=== PATIENT | female | born 1950 | race Caucasian/White ===

== ENCOUNTER → 2019-05-11 | Outpatient (CLI) | payer MEDICARE, OTHER ==
[~2019-05-11] MED LIST: ALLEGRA ALLERG180 MG PO; ALPR.25 PO; Aspir 8181 MG PO; BISA5EC PO; BUPR150ER PO; BUTASPCAF PO; CYCL10 PO; DOCU100 PO; FEXPSEER PO; HYDR1TAB94 PO; Hair, Skin & N1 EACH PO; Hydrocodone-Ap1 EA23 PO; MELO7.5 PO; PROCTOSOL-HC30 GM PR; PROP60 PO; Percocet 5-3251 EACH PO; Senna8.6 MG PO; VITAMIN B122500 MCG PO; VITAMIN D31 ML PO; Veetids 500500 MG PO; ZEBUTAL 50-3251 EACH PO; Zofran Odt8 MG SL
[2019-05-14 05:08] LABS: COTININE Negative ng/mL (Cutoff=300)
== END | disposition home or self-care (01) ==
LOC: LAB 11:19 → LAB SHORT 11:19
PROVIDERS: Orthopaedic Surgery
DX: M17.12 Unilateral primary osteoarthritis, left knee (principal)

== ENCOUNTER 2019-06-21 08:32 | Day surgery (SDC) | payer MEDICARE, OTHER ==
[~2019-06-21] VITALS: Ht 152.4 cm; Wt 71.0 kg
[~2019-06-21 08:32] MED LIST changes: -Aspir 8181 MG PO; -Percocet 5-3251 EACH PO
--- NOTE | 2019-06-21 09:05 | NUR ---
ADMISSION STARTED TO [facility]. Ambulatory in Day Surgery History, Chart, Medications and Allergies reviewed before start of procedure.Lungs clear T/O to Auscultation. Patient confirms NPO status and agrees with scheduled surgery.
--- NOTE | 2019-06-21 17:37 | NUR ---
SHIFT SUMMARY PT HAS STRUGGLED WITH PAIN MANAGEMENT SINCE SPINAL WORE OFF. DID HAVE ONE EPISODE OF EMESIS. NO VOID AT THIS TIME BUT PT WILL ATTEMPT AFTER DINNER.
--- NOTE | 2019-06-21 18:32 | NUR ---
PT VOMITTED. CLEANED UP AND RESTING IN CHAIR CURRENTLY. STATES THE NAUSEA IS COMING IN WAVES AND CURRENTLY IS NOT FEELING ANY NAUSEA.
--- NOTE | 2019-06-21 19:22 | NUR ---
SHIFT SUMMARY CARE ASSUMED OF PT AT APPROXIMATELY 1800. PT ALERT, ORIENTED AND PLEASANT. PT COMPLAINING OF NAUSEA. PAIN MANAGED. REPORT GIVEN TO LUCY BARTHOLOMEW.
--- NOTE | 2019-06-21 21:35 | NUR ---
PT REPORTS VOIDING RECENTLY AND FEELS SHE VOIDED WELL.
[2019-06-22 04:26] LABS: BASOPHILS ABSOLUTE AUTO 0.02 K/mm3 (0.00-0.23); BASOPHILS PERCENT AUTO 0 % (0-2); EOSINOPHILS PERCENT AUTO 0 % (0-6); Hematocrit 35.2 % (33.0-51.0); Hemoglobin 11.2 g/dL (11.5-16.0); IMMATURE GRAN ABSOLUTE AUTO 0.08 K/mm3 (0.00-0.10); IMMATURE GRAN PERCENT AUTO 1 % (0-1); LYMPHOCYTES ABSOLUTE AUTO 2.72 K/mm3 (0.84-5.20); LYMPHOCYTES PERCENT AUTO 16 % (21-46); MONOCYTES ABSOLUTE AUTO 0.93 K/mm3 (0.16-1.47); MONOCYTES PERCENT AUTO 5 % (4-13); Mean Corpuscular HGB 27.3 pg (26.0-34.0); Mean Corpuscular HGB Conc 31.8 g/dL (31.5-36.5); Mean Platelet Volume 8.9 fL (9.1-12.4); NEUTROPHILS ABSOLUTE AUTO 13.42 K/mm3 (1.96-9.15); NEUTROPHILS PERCENT AUTO 78 % (41-73); Platelet Count 302 K/mm3 (150-400); RDW Standard Deviation 43.8 fL (35.1-46.3); Red Blood Cell Count 4.11 M/mm3 (3.80-5.20); White Blood Cell Count 17.17 K/mm3 (4.00-11.30)
[2019-06-22 04:27] LABS: Mean Corpuscular Volume 86 fL (80-100)
[2019-06-22 04:45] LABS: Anion Gap 5 mmol/L (6-16); Blood Urea Nitrogen 12 mg/dL (8-24); Bun/Creatinine Ratio 23.8 (12.0-20.0); CO2, Blood 27 mmol/L (21-32); Calcium, Blood 8.7 mg/dL (8.5-10.1); Chloride, Blood 103 mmol/L (98-108); Glomerular Filtration Rate >60 (60-); Glucose, Blood 127 mg/dL (70-99); Sodium, Blood 135 mmol/L (136-145)
--- NOTE | 2019-06-22 07:38 | NUR ---
SHIFT SUMMARY PT BEEN ASSISTED WITH ADL'S PRN. PT BEEN MED FOR PAIN PRN. PT VOIDING. PT UP TO CHAIR THIS AM.
[2019-06-22] MEDS ORDERED: Aspir 8181 MG PO ×2 (10:24→10:34)
[2019-06-22] MEDS ORDERED: Percocet 5-3251 EACH PO (10:24)
--- NOTE | 2019-06-22 11:01 | NUR ---
DISCHARGE SUMMARY PT A&OX4, VSS, LEFT FLOOR VIA WC WITH VICE PRESIDENT [employer] INSIGHTS TO GO HOME WITH , WITH ALL PERSONAL POSSESSIONS INCLUDING DISCHARGE PACKET, 1 NARC SCRIPT, 1 ASA SCRIPT, 2 AQUACEL DRESSINGS, POLAR ANGIE. DC INSTRUCTIONS PROVIDED. PT REP UNDERSTANDING THOSE INSTRUCTIONS. IV DC'D.
== END 2019-06-22 11:36 | disposition home or self-care (01) ==
LOC: ORSCMMR 08:32 → ORD 10:15 → SURS 12:59 → ORSCMMR 06-22 11:36 → SURS 06-22 11:36
PROVIDERS: Orthopaedic Surgery
PROC: 0SRD06A Replacement of Left Knee Joint with Oxidized Zirconium on Polyethylene Synthetic Substitute, Uncemented, Open Approach (ICD-10-PCS; principal; 2019-06-21 10:15)
DX: M17.12 Unilateral primary osteoarthritis, left knee (principal); J44.9 Chronic obstructive pulmonary disease, unspecified; Z87.891 Personal history of nicotine dependence
CPT/HCPCS: 36415; 73560-LT; 80048; 85025; 86850; 86900; 86901; 88300; 97110; 97116; 97162; 97530; C1776; J0171; J0690; J0735; J1100; J1170; J1885; J2250; J2370; J2405; J2704; J2765; J2795; J3010; J7120

== ENCOUNTER 2019-08-23 08:08 | Day surgery (SDC) | payer MEDICARE, OTHER ==
[~2019-08-23] VITALS: Ht 154.9 cm; Wt 73.2 kg
[~2019-08-23 08:08] MED LIST changes: +Aspir 8181 MG PO; +GABA300T24 PO; +Percocet 5-3251 EACH PO
--- NOTE | 2019-08-23 09:12 | NUR ---
History, Chart, Medications and Allergies reviewed before start of procedure. Patient confirms NPO status and agrees with scheduled surgery. Lungs clear T/O to Auscultation.
--- NOTE | 2019-08-23 17:25 | NUR ---
PT RECENTLY WORKED WITH THERAPY.
--- NOTE | 2019-08-23 17:51 | NUR ---
PT REPORTING PAIN AT BACK SIDE OF KNEE/CALF AREA. PT REPORTS "IT ACTUALLY DOESN'T HURT IF I PRESS RIGHT HERE JUST ABOVE THAT". PT REPORTS IT HURTING WHEN AT REST BEHIND KNEE. PT REPORTS BACK OF KNEE DOES NOT HURT IF HOLDING LEG UP AND FLEXING TOE UPWARDS. PLACED NEW [place]CRATES WRAP. DISCUSSED WITH TRANSPLANT WORKER AND DR PAULETTE ADAMSON'S PA.
--- NOTE | 2019-08-23 17:56 | NUR ---
NO NEW ORDERS.
--- NOTE | 2019-08-23 18:00 | NUR ---
SHIFT SUMMARY PT EATING AND DRINKING. PT BEEN ASSISTED WITH ADL'S PRN. PT BEEN UP TO CHAIR AND VOIDED TODAY SINCE SURGERY. PT REPORTED PAIN TO BACK OF CALF, SEE OTHER NOTE. PT WORKED WITH THERAPY TODAY.
--- NOTE | 2019-08-24 04:14 | NUR ---
SHIFT SUMMARY PATIENT SLEPT WELL AFTER ONE DOSE OF DILAUDID PRIOR TO MIDNIGHT. SHE HAS BEEN UP IN THE ROOM WITH ASSISTANCE AND WALING IN THE HALLWAYS WITH GAIT BELT AND FWW. SHE STATES THAT SHE IS SURPRISED THAT SHE IS NOT ABLE TO BEND HER KNEE HER LT SIDED SURGERY. PATIENT BECAME NAUSEATED AND VOMITED AFTER EATING CHOCOLATE PUDDING. ZOFRAN IV GIVEN.
[2019-08-24 04:48] LABS: BASOPHILS ABSOLUTE AUTO 0.06 K/mm3 (0.00-0.23); BASOPHILS PERCENT AUTO 0 % (0-2); EOSINOPHILS ABSOLUTE AUTO 0.07 K/mm3 (0.00-0.68); EOSINOPHILS PERCENT AUTO 1 % (0-6); Hematocrit 34.7 % (33.0-51.0); Hemoglobin 10.8 g/dL (11.5-16.0); IMMATURE GRAN ABSOLUTE AUTO 0.06 K/mm3 (0.00-0.10); IMMATURE GRAN PERCENT AUTO 0 % (0-1); LYMPHOCYTES ABSOLUTE AUTO 2.72 K/mm3 (0.84-5.20); LYMPHOCYTES PERCENT AUTO 20 % (21-46); MONOCYTES ABSOLUTE AUTO 1.05 K/mm3 (0.16-1.47); MONOCYTES PERCENT AUTO 8 % (4-13); Mean Corpuscular HGB 27.4 pg (26.0-34.0); Mean Corpuscular HGB Conc 31.1 g/dL (31.5-36.5); Mean Corpuscular Volume 88 fL (80-100); Mean Platelet Volume 9.1 fL (9.1-12.4); NEUTROPHILS ABSOLUTE AUTO 9.93 K/mm3 (1.96-9.15); NEUTROPHILS PERCENT AUTO 72 % (41-73); Platelet Count 296 K/mm3 (150-400); RDW Coefficient Variation 13.1 % (11.7-14.2); RDW Standard Deviation 42.3 fL (35.1-46.3); Red Blood Cell Count 3.94 M/mm3 (3.80-5.20); White Blood Cell Count 13.89 K/mm3 (4.00-11.30)
[2019-08-24 05:05] LABS: Anion Gap 6 mmol/L (6-16); Blood Urea Nitrogen 14 mg/dL (8-24); CO2, Blood 27 mmol/L (21-32); Calcium, Blood 8.5 mg/dL (8.5-10.1); Chloride, Blood 107 mmol/L (98-108); Creatinine, Blood 0.47 mg/dL (0.40-1.00); Glomerular Filtration Rate >60 (60-); Glucose, Blood 121 mg/dL (70-99); Potassium, Blood 4.1 mmol/L (3.5-5.5); Sodium, Blood 140 mmol/L (136-145)
--- NOTE | 2019-08-24 09:23 | NUR ---
EMESIS WHEN OOB WORKING WITH PHYSICAL THERAPY. ZOFRAN GIVEN
[2019-08-24] MEDS ORDERED: ONDA4 PO (09:46)
[2019-08-24] MEDS ORDERED: Percocet 5-3251 EACH PO (09:50)
--- NOTE | 2019-08-24 14:30 | NUR ---
1425 DISCHARGE PATIENT REPORTS NO FURTHER NAUSEA AFTER PHENERGAN AND REQUESTS DISCHARGE. PATIENT DISCHARGED TO HOME WITH HER
--- NOTE | 2019-08-25 10:44 | NUR ---
08/25/19 1044 Kandi Carmichael VERIFICATIONS: EDIT CHART.
== END 2019-08-24 14:26 | disposition home or self-care (01) ==
LOC: ORSCMMR 08:08 → ORD 08:15 → ORSCMMR 10:00 → SURS 12:40 → ORSCMMR 14:45 → SURS 08-24 14:26
PROVIDERS: Orthopaedic Surgery
PROC: 0SRC0JA Replacement of Right Knee Joint with Synthetic Substitute, Uncemented, Open Approach (ICD-10-PCS; principal; 2019-08-23 10:00)
DX: M17.11 Unilateral primary osteoarthritis, right knee (principal); J44.9 Chronic obstructive pulmonary disease, unspecified; F17.210 Nicotine dependence, cigarettes, uncomplicated; Z79.899 Other long term (current) drug therapy
CPT/HCPCS: 36415; 73560-RT; 80048; 85025; 86850; 86900; 86901; 88300; 97110; 97116; 97162; 97530; C1776; J0171; J0690; J0735; J1170; J1885; J2250; J2405; J2704; J2795; J3010; J7120

== ENCOUNTER 2020-05-15 07:19 | Day surgery (SDC) | payer MEDICARE, OTHER ==
[~2020-05-15] VITALS: Ht 154.9 cm; Wt 73.9 kg
[~2020-05-15 07:19] MED LIST changes: +ONDA4 PO
[2020-05-15] MEDS ORDERED: BUPR75 (08:05)
--- NOTE | 2020-05-15 11:32 | NUR ---
05/15/20 1132 Una Tovar 1011 PT. WOKE UP MOANING & SHAKING C/O HER LEFT SHOULDER HURTING. PT. CAME IN WITH SHOULDER PAIN. PT. AWARE SHE HAD TO LAY ON HER LEFT SHOULDER. DR. VALERIO AWARE. PUT A PILLOW UNDER HER LEFT SHOULDER WHEN SHE AWAKENED IN WHICH PT. VERBALIZED HELPING IT. PT. VERBALIZES NEEDING A NEW SHOULDER & HAS INJECITONS IN IT. PT. VERBALIZES WILL GO HOME & PUT A LIDOCAINE PATCH ON IT. PT. RATED HER SHOULDER PAIN A "10"
--- NOTE | 2020-05-15 12:23 | NUR ---
05/15/20 1223 Una Tovar S LATE ENTRY 0850 PT. VERBALIZES HAVING LEFT SHOULDER PAIN BUT OK IF DOESN'T MOVE IT. PT. VERBALIZES SHE HAS HAD INJECTIONS IN HER SHOULDER & NEEDS A NEW SHOULDER. PT. ALSO INSTRUCTED THAT SHE WILL BE LAYING ON HER LEFT SHOULDER FOR THE PROCEDURE SO TO LET US KNOW HOW TO MAKE HER COMFORTABLE. PT. ALSO C/O LOW BACK PAIN RATING AN "8" IF GETTING OUT OF A CHAIR.
== END 2020-05-15 10:58 | disposition home or self-care (01) ==
LOC: ORSCSDS 07:19
PROVIDERS: Student in an Organized Health Care Education/Training Program
PROC: 0DBK8ZX Excision of Ascending Colon, Via Natural or Artificial Opening Endoscopic, Diagnostic (ICD-10-PCS; principal; 2020-05-15 09:00)
PROC: 0DBH8ZX Excision of Cecum, Via Natural or Artificial Opening Endoscopic, Diagnostic (ICD-10-PCS; principal; 2020-05-15 09:00)
PROC: 0DBP8ZX Excision of Rectum, Via Natural or Artificial Opening Endoscopic, Diagnostic (ICD-10-PCS; principal; 2020-05-15 09:00)
PROC: 0DB58ZX Excision of Esophagus, Via Natural or Artificial Opening Endoscopic, Diagnostic (ICD-10-PCS; principal; 2020-05-15 09:00)
PROC: 0DB78ZX Excision of Stomach, Pylorus, Via Natural or Artificial Opening Endoscopic, Diagnostic (ICD-10-PCS; principal; 2020-05-15 09:00)
PROC: 0DBN8ZX Excision of Sigmoid Colon, Via Natural or Artificial Opening Endoscopic, Diagnostic (ICD-10-PCS; principal; 2020-05-15 09:00)
PROC: 0DB98ZX Excision of Duodenum, Via Natural or Artificial Opening Endoscopic, Diagnostic (ICD-10-PCS; principal; 2020-05-15 09:00)
DX: K21.9 Gastro-esophageal reflux disease without esophagitis (principal); K22.70 Barrett's esophagus without dysplasia; Z12.11 Encounter for screening for malignant neoplasm of colon; Z86.010 Personal history of colon polyps; Z80.0 Family history of malignant neoplasm of digestive organs; R11.2 Nausea with vomiting, unspecified; R15.0 Incomplete defecation; K31.7 Polyp of stomach and duodenum; D12.0 Benign neoplasm of cecum; D12.2 Benign neoplasm of ascending colon; K63.5 Polyp of colon; K62.1 Rectal polyp; K57.30 Diverticulosis of large intestine without perforation or abscess without bleeding; K64.4 Residual hemorrhoidal skin tags; K29.70 Gastritis, unspecified, without bleeding; K44.9 Diaphragmatic hernia without obstruction or gangrene; K64.8 Other hemorrhoids
CPT/HCPCS: 88305; 88342; J0330; J0461; J2405; J2704; J7120

== ENCOUNTER 2021-09-17 09:43 | Inpatient (IN) | payer MEDICARE, OTHER ==
[~2021-09-17] VITALS: Ht 149.9 cm; Wt 78.3 kg
[~2021-09-17 09:43] MED LIST changes: +ATOR10 PO; +BUPR75 PO; +FAMO20 PO; +LIDO700A20 TOP; +MERIBIN5 MG PO; +MULVITA PO; +PANT40 PO; +TEMA15 PO; +ZYRTEC10 M2 PO
--- NOTE | 2021-09-17 16:18 | NUR ---
SHIFT SUMMARY PT RESTING COMFORTABLY, SLEEPY, WAKES EASILY, VSS/1LNC. S/P L TSA, AQUACEL CDI, IMMOBILIZER ON, POLAR ANGIE ON, NWB. AWAITING POST-OP VOID. WILL REPORT TO ONCOMING NOC [place].
--- NOTE | 2021-09-17 16:23 | NUR ---
DAUGHTER REPORTED TO ME THAT SHE WILL BE HERE ON THURSDAY ABOUT 1600 TO CALL OUT OPERATOR PATIENT.
--- NOTE | 2021-09-18 03:54 | NUR ---
PT IS ALERRT AND ORIENTED X4. UP WITH SBA. PAINFUL; MID BACK TOWARDS MID FRONT, HAVING EMESIS X4; GREENISH/YELLOW COLOR. PT STATES," I THINK IS MY HIATAL HERNIA". ZOFRAN GIVEN X1 AND REGLAN X1. PT FEELS MUCH BETTER ONCE SHE VOMITS. PAIN IMPROVES AFTER HAVING EMESIS. VOIDED 400 ML. EMESIS HAPPENS INSTANTLY AFTER TAKING PILLS. WITH 2100 MEDS HAD NO ISSUES.
[2021-09-18 04:36] LABS: BASOPHILS ABSOLUTE AUTO 0.03 K/mm3 (0.00-0.23); BASOPHILS PERCENT AUTO 0 % (0-2); EOSINOPHILS PERCENT AUTO 0 % (0-6); Hematocrit 36.9 % (33.0-51.0); Hemoglobin 11.3 g/dL (11.5-16.0); IMMATURE GRAN ABSOLUTE AUTO 0.06 K/mm3 (0.00-0.10); IMMATURE GRAN PERCENT AUTO 0 % (0-1); LYMPHOCYTES ABSOLUTE AUTO 2.01 K/mm3 (0.84-5.20); LYMPHOCYTES PERCENT AUTO 13 % (21-46); MONOCYTES ABSOLUTE AUTO 0.94 K/mm3 (0.16-1.47); MONOCYTES PERCENT AUTO 6 % (4-13); Mean Corpuscular HGB 26.5 pg (26.0-34.0); Mean Corpuscular HGB Conc 30.6 g/dL (31.5-36.5); Mean Corpuscular Volume 87 fL (80-100); Mean Platelet Volume 9.6 fL (9.1-12.4); NEUTROPHILS ABSOLUTE AUTO 12.68 K/mm3 (1.96-9.15); NEUTROPHILS PERCENT AUTO 81 % (41-73); Platelet Count 286 K/mm3 (150-400); RDW Coefficient Variation 14.2 % (11.7-14.2); RDW Standard Deviation 44.9 fL (35.1-46.3); Red Blood Cell Count 4.26 M/mm3 (3.80-5.20); White Blood Cell Count 15.72 K/mm3 (4.00-11.30)
[2021-09-18 05:01] LABS: Anion Gap 9 mmol/L (6-16); Blood Urea Nitrogen 14 mg/dL (8-24); Bun/Creatinine Ratio 26.6 (12.0-20.0); CO2, Blood 23 mmol/L (21-32); Calcium, Blood 8.8 mg/dL (8.5-10.1); Chloride, Blood 107 mmol/L (98-108); Creatinine, Blood 0.53 mg/dL (0.40-1.00); Glomerular Filtration Rate >60 (60-); Glucose, Blood 156 mg/dL (70-99); Potassium, Blood 4.1 mmol/L (3.5-5.5); Sodium, Blood 139 mmol/L (136-145)
[2021-09-18] MEDS ORDERED: ASPIR 8181 M1 PO (10:14)
[2021-09-18] MEDS ORDERED: ONDA4 PO (10:38)
[2021-09-18] MEDS ORDERED: Percocet 5-3251 EACH PO (10:40)
--- NOTE | 2021-09-18 16:55 | NUR ---
DISCHARGE CONCERNS DISCUSSED DECREASED INTAKE R/T NAUSEA AND VOMITING. WITH JUAN DIEGO GUERRERO. ALS DISCUSSED DIZZINESS WHEN WORKING WITH THERAPY. PER JUAN DIEGO GUERRERO OK FOR PT TO DISCHARGE SINCE VS HAVE REMAINED STABLE AND NAUSEA IS IMPROVING WITH USE OF ANTIEMETICS AND PO PAIN MEDICATION INSTEAD OF IV DILAUDID. PT REPORTS FEELING READY TO DISCHARGE HOME. SHE CLEARED THERAPY IS VOIDING. VSS. FAMILY PRESENT FOR SUPPORT. WILL MONITOR UNTIL DISCHARGE.
--- NOTE | 2021-09-18 17:50 | NUR ---
DISCHARGE PT AND HER DAUGHTER PROVIDED WITH WRITTEN AND VERBAL DISCHARGE INSTRUCTIONS; THEY REPORTED UNDERSTANDING. PRESCRIPTIONS GIVEN TO PT'S DAUGHTER PER PT REQUEST, SHE TOOK THEM TO BE FILLED. PRIOR TO DISCHARGE PT WAS VOIDING, CLEARED THERAPY AND WAS ABLE TO GET OOB AND WALK TO THE BATHROOM WITHOUT DIZZINESS. PT HAS BEEN ABLE TO TOLERATE SOME PO INTAKE SINCE PO PAIN MEDICATION STARTED AND ANTIEMETICS GIVEN. PT EDUCATED TO CALL DR. KANG' OFFICE IF SHE CONTINUES TO HAVE N/V OR WITH OTHER CONCERNS. PT REPORTED FEELING READY TO RETURN HOME. PAIN MANAGED WITH PO PAIN MEDICATION. PT ESCORTED OUT IN W/C BY DERECK RYDER AND LEATHA RYDER.
--- NOTE | 2021-09-18 17:55 | NUR ---
IV REMOVED FROM RAC AND R HAND PRIOR TO DISCHARGE. PT TOLERATED WELL. CATHETERS INTACT. IV SITES WNL AT TIME OF DISCHARGE.
== END 2021-09-18 17:57 | disposition home or self-care (01) | DRG 483 ==
LOC: SURS 09:43 → PRE IP 12:30 → SURS 15:17
PROVIDERS: ADMIT Orthopaedic Surgery
PROC: 0RRK00Z Replacement of Left Shoulder Joint with Reverse Ball and Socket Synthetic Substitute, Open Approach (ICD-10-PCS; principal; 2021-09-17 12:45)
DX: M19.012 Primary osteoarthritis, left shoulder (principal); M75.112 Incomplete rotator cuff tear or rupture of left shoulder, not specified as traumatic; Z87.891 Personal history of nicotine dependence; F41.9 Anxiety disorder, unspecified; M19.90 Unspecified osteoarthritis, unspecified site; J44.9 Chronic obstructive pulmonary disease, unspecified; F32.A Depression, unspecified; K21.9 Gastro-esophageal reflux disease without esophagitis; E78.5 Hyperlipidemia, unspecified; Z96.652 Presence of left artificial knee joint; Z90.710 Acquired absence of both cervix and uterus; Z98.890 Other specified postprocedural states; Z79.899 Other long term (current) drug therapy; Z88.8 Allergy status to other drugs, medicaments and biological substances; G43.909 Migraine, unspecified, not intractable, without status migrainosus
CPT/HCPCS: 73030; 80048; 85025; 97110; 97116; 97162; 97165; 97530; 97535; A9270; C1776; J0171; J0690; J0735; J1100; J1170; J1885; J2270; J2370; J2405; J2550; J2704; J2765; J2795; J3010; J7120

== ENCOUNTER 2022-02-25 12:41 | Day surgery (SDC) | payer MEDICARE, OTHER ==
[~2022-02-25] VITALS: Ht 149.9 cm; Wt 76.0 kg
[~2022-02-25 12:41] MED LIST changes: +ASPIR 8181 M1 PO
--- NOTE | 2022-02-25 13:41 | NUR ---
02/25/22 1341 ZEE REYES 2 ATTEMPTS AT IV. FIRST ATTEMPT BY MA IN R HAND INFILTRATED. SECOND ATTEMPT BY MA IN R AC SUCCESSFUL.
== END 2022-02-25 15:24 | disposition home or self-care (01) ==
LOC: ORSCSDS 12:41
PROVIDERS: Surgery
PROC: 0DB78ZX Excision of Stomach, Pylorus, Via Natural or Artificial Opening Endoscopic, Diagnostic (ICD-10-PCS; principal; 2022-02-25 14:00)
PROC: 0DB58ZX Excision of Esophagus, Via Natural or Artificial Opening Endoscopic, Diagnostic (ICD-10-PCS; principal; 2022-02-25 14:00)
DX: K22.70 Barrett's esophagus without dysplasia (principal); K21.9 Gastro-esophageal reflux disease without esophagitis; K44.9 Diaphragmatic hernia without obstruction or gangrene; K31.7 Polyp of stomach and duodenum; J44.9 Chronic obstructive pulmonary disease, unspecified; G47.33 Obstructive sleep apnea (adult) (pediatric); Z87.891 Personal history of nicotine dependence; F41.8 Other specified anxiety disorders; E66.9 Obesity, unspecified; Z68.33 Body mass index [BMI] 33.0-33.9, adult; Z79.899 Other long term (current) drug therapy
CPT/HCPCS: 88305; A9270; J2704; J7120

== ENCOUNTER 2022-03-23 11:46 | Emergency (ER) | payer MEDICARE, OTHER ==
[~2022-03-23] VITALS: Ht 149.9 cm; Wt 72.6 kg
[2022-03-23] MEDS ORDERED: HYDR1TAB94 PO (13:44)
== END 2022-03-23 14:48 | disposition home or self-care (01) ==
LOC: ER 11:46
DX: M97.32XA Periprosthetic fracture around internal prosthetic left shoulder joint, initial encounter (principal); J44.9 Chronic obstructive pulmonary disease, unspecified; W18.09XA Striking against other object with subsequent fall, initial encounter
CPT/HCPCS: 73060

== ENCOUNTER 2022-03-29 20:27 | Emergency (ER) | payer MEDICARE, OTHER ==
[~2022-03-29] VITALS: Ht 149.9 cm; Wt 74.4 kg
== END 2022-03-29 23:47 | disposition home or self-care (01) ==
LOC: ER 20:27
DX: R22.32 Localized swelling, mass and lump, left upper limb (principal); J44.9 Chronic obstructive pulmonary disease, unspecified
CPT/HCPCS: 73090; 73130

== ENCOUNTER 2022-06-20 06:18 | Observation (INO) | payer MEDICARE, OTHER ==
[~2022-06-20] VITALS: Ht 149.9 cm; Wt 69.7 kg
[~2022-06-20 06:18] MED LIST changes: +ASHWAGANDA; +GLUC500; +METAMUCIL POWD798 GM PO; +TURMERIC500 M2 PO; +VITAMIN B125000 MC1 PO; +VITAMIN D310 MC4
--- NOTE | 2022-06-20 08:00 | NUR ---
Ambulatory in Day Surgery. Patient confirms NPO status and agrees with scheduled surgery. Lungs clear T/O to Auscultation. Pre-Op teaching done. Pt verbalizes understanding. Patient reports completing Chlorhexadine shower X2 prior to admission to hospital.
--- NOTE | 2022-06-20 13:58 | NUR ---
POST OP: REPORT RECEIVED FROM TAMMY, FUNERAL DIRECTOR AND EMBALMER. PT TO UNIT AT ABOUT 1120. PT IS ORIENTED, SLEEPY, VSS. SURGICAL SITES WNL. PT REPORTS PAIN, THEN QUICKLY FALLS ASLEEP. RT SET UP PT'S HOME CPAP, AND CONTINIOUS OXIMETRY. PT RESTING, FAMILY AT BEDSIDE.
--- NOTE | 2022-06-20 18:59 | NUR ---
SUMMARY: PT HAS DONE WELL POST OP. A/O, VSS. SURGICAL SITES WNL. MEDICATED WITH 1 OXY FOR PAIN. PT ABLE TO DRINK CLEAR LIQ TONIGHT WITHOUT DIFFICULTLY. AMBULATED IN HALLS, VOIDING. NO ACUTE SAFETY CONCERNS.
--- NOTE | 2022-06-21 04:03 | NUR ---
SHIFT SUMMARY NO ACUTE CHANGES TO REPORT OVERNIGHT. POD 0 HERNIA REPAIR, PT REPORTS MILD TO MODERATE PAIN 4 (0-10). PT CHIEF COMPLAINT HAS BEEN A MIGRANE. PT MEDICATED FOR PAIN PER EMAR. LAP SITES TO ABD C/D/I. PT TOLERATING PO INTAKE, NO N/V. VITALS STABLE. BED IN LOWEST POSITION, CALL LIGHT WITHIN REACH.
[2022-06-21 04:13] LABS: Hemoglobin 11.5 g/dL (11.5-16.0); Mean Corpuscular HGB 26.8 pg (26.0-34.0); Mean Corpuscular HGB Conc 31.9 g/dL (31.5-36.5); Mean Corpuscular Volume 84 fL (80-100); Mean Platelet Volume 9.4 fL (9.1-12.4); Platelet Count 302 K/mm3 (150-400); RDW Coefficient Variation 14.5 % (11.7-14.2); RDW Standard Deviation 44.5 fL (35.1-46.3); Red Blood Cell Count 4.29 M/mm3 (3.80-5.20); White Blood Cell Count 12.16 K/mm3 (4.00-11.30)
--- NOTE | 2022-06-21 14:03 | NUR ---
discharged DC'D IVS, CATHETERS INTACT. REVIEWED DC INSTRUCTIONS; PT VERBALIZED UNDERSTANDING. DAUGHTER CARRIED OUT POSSESSIONS. PT LEFT UNIT IN WC WITH DC PAPERWORK IN HAND, TO RIDE WAITING OUTSIDE.
== END 2022-06-21 13:50 | disposition home or self-care (01) ==
LOC: SURS 06:18 → PRE IP 06:18 → SURS 06:18 → PRE IP 07:30 → SURS 10:27 → PRE IP 10:30 → SURS 10:46
PROVIDERS: ADMIT Surgery
DX: K44.9 Diaphragmatic hernia without obstruction or gangrene (principal); K22.70 Barrett's esophagus without dysplasia; K21.9 Gastro-esophageal reflux disease without esophagitis; J44.9 Chronic obstructive pulmonary disease, unspecified; E78.5 Hyperlipidemia, unspecified; Z87.891 Personal history of nicotine dependence; Z88.8 Allergy status to other drugs, medicaments and biological substances; Z79.899 Other long term (current) drug therapy
CPT/HCPCS: 36415; 85027; 94762; 96372; 96374; 96375; 96376; A9270; C1781; G0378; J0690; J1100; J1650; J1885; J2250; J2405; J2704; J2795; J3010; J7120

== ENCOUNTER 2024-05-19 13:21 | Day surgery (SDC) | payer MEDICARE, OTHER ==
[~2024-05-19] VITALS: Ht 149.9 cm; Wt 64.9 kg
[~2024-05-19 13:21] MED LIST changes: +Lidocaine 2% 5 ML SDV ONE; +Lidocaine HCl/Pf 1% 5 ML VIAL ONE; +Ventolin/Prove6.7 GM INH
[2024-05-19] MEDS ORDERED: Vitamin B-12100 MCG (14:01)
[2024-05-19] MEDS ORDERED: Flonase 0.05% N16 GM (14:01)
[2024-05-19] MEDS ORDERED: DICLOFENAC SOD100 GM (14:01)
[2024-05-19] MEDS ORDERED: OMEP20ER (14:01)
[2024-05-19] MEDS ORDERED: Lactated Ringer's 1,000 ML IV ONE ×2 (15:20→15:28)
[2024-05-19] MEDS ORDERED: propofoL 50 ML IV ONE (15:28)
[2024-05-19 16:24] VITALS: BP 112/78
== END 2024-05-19 16:27 | disposition home or self-care (01) ==
LOC: ORSCSDS 13:21
PROVIDERS: Surgery
PROC: 0DB68ZX Excision of Stomach, Via Natural or Artificial Opening Endoscopic, Diagnostic (ICD-10-PCS; principal; 2024-05-19 14:45)
PROC: 0DB48ZX Excision of Esophagogastric Junction, Via Natural or Artificial Opening Endoscopic, Diagnostic (ICD-10-PCS; principal; 2024-05-19 14:45)
DX: K21.00 Gastro-esophageal reflux disease with esophagitis, without bleeding (principal); K22.70 Barrett's esophagus without dysplasia; F32.A Depression, unspecified; F41.9 Anxiety disorder, unspecified; J44.9 Chronic obstructive pulmonary disease, unspecified; Z87.891 Personal history of nicotine dependence; Z79.899 Other long term (current) drug therapy
CPT/HCPCS: 88305; 88342; J2001; J2704; J7120

== ENCOUNTER 2024-07-29 05:41 | Observation (INO) | payer MEDICARE, OTHER ==
[~2024-07-29] VITALS: Ht 149.9 cm; Wt 68.0 kg
[2024-07-29] VITALS (17 sets, daily range): BP systolic 96–147; BP diastolic 55–112
[~2024-07-29 05:41] MED LIST changes: +BUTALB-ASPIRIN1 EAC1 PO; +CENTRUM SILVER1 EAC2; +DICLOFENAC SOD100 GM; +Flonase 0.05% N16 GM; +GINKGO60 MG; -Lidocaine 2% 5 ML SDV ONE; -Lidocaine HCl/Pf 1% 5 ML VIAL ONE; +METAMUCIL POWD798 GM; +MIRALAX17 GM; +OLIVE; +OMEP20ER PO; +TUMERIC; +Vitamin B-12100 MCG; +[UNRECOGNIZED DRUG - OTHER]
[2024-07-29] MEDS ORDERED: Acetaminophen 500 MG Tab PO SCH (06:30)
[2024-07-29] MEDS ORDERED: Lactated Ringer's 1,000 ML IV SCH (06:30)
--- NOTE | 2024-07-29 07:00 | NUR ---
Ambulatory in Day Surgery History, Chart, Medications and Allergies reviewed before start of procedure.Lungs clear T/O to Auscultation. Patient confirms NPO status and agrees with scheduled surgery.Pt reports gerd. Patient States Post-Procedure ride home has been arranged.
[2024-07-29] MEDS ORDERED: FentaNYL Citrate 50 MCG/ML 5 ML Injection ONE (07:08)
[2024-07-29] MEDS ORDERED: propofoL 20 ML IV ONE (07:08)
[2024-07-29] MEDS ORDERED: Lidocaine HCl 2% 20 ML MDV ONE ×2 (07:08→08:55)
[2024-07-29] MEDS ORDERED: Bupivacaine 0.5% HCl 5 MG/ML 30MLVIAL ONE (07:10)
[2024-07-29] MEDS ORDERED: Citric Acid/Sodium Citrate 30 ML BTL PO ONE (07:30)
[2024-07-29] MEDS ORDERED: Magnesium Sulfate 500 MG / ML 2ML Vial IV SCH (07:35)
[2024-07-29] MEDS ORDERED: Phenylephrine HCl 10mg/ml 1 ml Vial ONE (08:55)
[2024-07-29] MEDS ORDERED: Ondansetron HCl 2 MG / ML 2ML Vial ONE (08:55)
[2024-07-29] MEDS ORDERED: Rocuronium Bromide 10 MG/ML 5ML Injection IV ONE ×2 (08:55→08:56)
[2024-07-29] MEDS ORDERED: Metoclopramide HCl 5MG / ML 2ML Vial ONE (08:55)
[2024-07-29] MEDS ORDERED: Glycopyrrolate 0.2 MG/ML 5ML VIAL ONE (08:55)
[2024-07-29] MEDS ORDERED: Sugammadex Sodium 200 MG/2ML SDV (100 MG/ML) ONE (10:09)
[2024-07-29] MEDS ORDERED: Ondansetron HCl 2 MG / ML 2ML Vial IV PRN (10:25)
[2024-07-29] MEDS ORDERED: HYDROmorphone HCl/Pf 1MG SYR IV PRN (10:25)
[2024-07-29] MEDS ORDERED: OxyCODONE HCL 5 MG TAB PO PRN (10:25)
[2024-07-29] MEDS ORDERED: FLU VACC TS2024-25(6MOS UP)/PF 45 MCG/0.5 ML SYRINGE IM SCH (10:30)
[2024-07-29] MEDS ORDERED: Temazepam 15 MG Cap PO PRN (10:50)
[2024-07-29] MEDS ORDERED: Albuterol HFA200 ACT/6.7 GM INH INH PRN (10:55)
[2024-07-29] MEDS ORDERED: FentaNYL Citrate 50 MCG/ML 2 ML Injection ONE (10:58)
--- NOTE | 2024-07-29 12:12 | NUR ---
POSTOP: REPORT RECEIVED FROM CODING TECHNICIANFLORIDA SEGURA. PT TO UNIT AT ABOUT 1130. VSS ,A/O, SURGICAL SITES WNL. PT DENIES PAIN AT THIS TIME. GIVEN CALL LIGHT AND INSTRUCTED PT TO USE CALL LIGHT TO CALL STAFF FOR THE FIRST TIME OOB
--- NOTE | 2024-07-29 18:14 | NUR ---
DISCHARGE: PT IS VOIDING, WALKING, PAIN MANAGED, VSS. DC PACKET PRINTED AND PT EDUCATED. IV DC'D WNL, TIP INTACT. PT LEFT UNIT VIA WHEELCHAIR WITH THIS RN AT ABOUT 1700
[2024-07-29] MEDS ORDERED: Atorvastatin 10 MG Tab PO SCH (21:00)
[2024-07-30] MEDS ORDERED: Loratadine 10 MG Tab PO SCH (09:00)
[2024-07-30] MEDS ORDERED: Psyllium 1 EA Pack PO SCH (09:00)
[2024-07-30] MEDS ORDERED: Enoxaparin 40 MG/0.4 ML SYR SC SCH (09:00)
[2024-07-30] MEDS ORDERED: Polyethylene Glycol 3350 17 gm PO SCH (09:00)
== END 2024-07-29 18:15 | disposition home or self-care (01) ==
LOC: ORSCMMR 05:41 → SURS 07:29 → ORSCMMR 07:29 → ORD 07:30 → ORSCMMR 07:30 → SURS 11:00
PROVIDERS: ADMIT Surgery
PROC: 0DV40ZZ Restriction of Esophagogastric Junction, Open Approach (ICD-10-PCS; principal; 2024-07-29 07:30)
DX: K21.9 Gastro-esophageal reflux disease without esophagitis (principal); K22.70 Barrett's esophagus without dysplasia; J44.9 Chronic obstructive pulmonary disease, unspecified; F32.9 Major depressive disorder, single episode, unspecified; E78.5 Hyperlipidemia, unspecified; Z79.899 Other long term (current) drug therapy; Z87.891 Personal history of nicotine dependence; Z88.8 Allergy status to other drugs, medicaments and biological substances; Z98.890 Other specified postprocedural states
CPT/HCPCS: A9270; J2371; J2405; J2704; J2765; J3010; J3475; J7120

== ENCOUNTER 2025-05-30 09:45 | Day surgery (SDC) | payer MEDICARE, OTHER ==
[~2025-05-30] VITALS: Ht 149.9 cm; Wt 59.7 kg
[~2025-05-30 09:45] MED LIST changes: +NS 500 ML IV ONE
[2025-05-30] MEDS ORDERED: VITAMIN B122500 MC1 PO (11:35)
[2025-05-30] MEDS ORDERED: NS 500 ML IV ONE (11:46)
[2025-05-30] MEDS ORDERED: CeFAZolin Sodium 2,000 MG VIAL ONE (12:16)
--- NOTE | 2025-05-30 12:21 | NUR ---
05/30/25 1220 Isabela Conklin TIME OUT PERFORMED AT BEDSIDE WITH DR LAWTON AT 1213 IMMEDIATELY PRIOR TO INJECTION OF 4ML OF SOLUTION CONSISTING OF 9ML 1% LIDOCAINE W/EPI [id number] AND 1ML 8.4% SODIUM BICARBONATE INTO L HAND. PATIENT TOLERATED PROCEDURE WELL.
[2025-05-30 13:34] VITALS: BP 148/83
--- NOTE | 2025-05-30 14:07 | NUR ---
05/30/25 1407 CashEdouard PT DENIES PAIN AND NAUSEA AT THIS TIME. PT AGREEABLE TO D/C HOME WITH DOTTIE.
== END 2025-05-30 14:06 | disposition home or self-care (01) ==
LOC: ORSCSDS 09:45
PROVIDERS: Orthopaedic Surgery
PROC: 0LN80ZZ Release Left Hand Tendon, Open Approach (ICD-10-PCS; principal; 2025-05-30 12:15)
DX: M65.312 Trigger thumb, left thumb (principal); K21.9 Gastro-esophageal reflux disease without esophagitis; J44.9 Chronic obstructive pulmonary disease, unspecified; F41.9 Anxiety disorder, unspecified; F17.210 Nicotine dependence, cigarettes, uncomplicated; Z79.899 Other long term (current) drug therapy
CPT/HCPCS: J0690; J7040

== ENCOUNTER 2025-08-02 10:19 | Day surgery (SDC) | payer MEDICARE, OTHER ==
[~2025-08-02] VITALS: Ht 149.9 cm; Wt 63.8 kg
[~2025-08-02 10:19] MED LIST changes: +Balanced Salt Epinephrine Irrigation Solution 500 mL IR SCH; +Moxifloxacin HCL 0.5 MG/0.1 ML 0.4MLSYR RIGHTEYE SCH; -NS 500 ML IV ONE; +Ondansetron 4 MG SoluTab MM PRN; +PHENYLEPHRINE\\TROPICAMIDE\\TETRACAINE OPHTHALMIC DILATING SOLN RIGHTEYE PRN; +Povidone-Iodine 450 DROP/30 ML Solution ONE; +Povidone-Iodine 450 DROP/30 ML Solution RIGHTEYE SCH; +Tetracaine HCl/Pf 0.5% Opth Soln 4 ml ONE; +VITAMIN B122500 MC1 PO
--- NOTE | 2025-08-02 10:55 | NUR ---
08/02/25 1055 Isabela Conklin PT REPORTS ANXIETY LEVEL WAS 5/10 PRIOR TO ADMINISTRATION OF VALIUM 10MG PO AT 1054.
[2025-08-02] MEDS ORDERED: IBUP200 PO (10:57)
[2025-08-02] MEDS ORDERED: MAGNESIUM250 M1 PO (10:59)
--- NOTE | 2025-08-02 11:33 | NUR ---
08/02/25 1133 Aura Mahmood 1131 BP:131/72 HR:63 O2:98% RESP:16
[2025-08-02 11:56] VITALS: BP 130/67
== END 2025-08-02 11:59 | disposition home or self-care (01) ==
LOC: ORSCSDS 10:19
PROVIDERS: Student in an Organized Health Care Education/Training Program
PROC: 08RJ3JZ Replacement of Right Lens with Synthetic Substitute, Percutaneous Approach (ICD-10-PCS; principal; 2025-08-02 12:00)
DX: H25.813 Combined forms of age-related cataract, bilateral (principal); J44.9 Chronic obstructive pulmonary disease, unspecified; F41.9 Anxiety disorder, unspecified; F32.A Depression, unspecified; K21.9 Gastro-esophageal reflux disease without esophagitis; E78.5 Hyperlipidemia, unspecified; G47.33 Obstructive sleep apnea (adult) (pediatric); Z79.899 Other long term (current) drug therapy; Z87.891 Personal history of nicotine dependence
CPT/HCPCS: A9270; V2632

== ENCOUNTER 2025-08-09 06:52 | Day surgery (SDC) | payer MEDICARE, OTHER ==
[~2025-08-09] VITALS: Ht 149.9 cm; Wt 63.7 kg
[~2025-08-09 06:52] MED LIST changes: +IBUP200 PO; +MAGNESIUM250 M1 PO; +Moxifloxacin HCL 0.5 MG/0.1 ML 0.4MLSYR LEFTEYE SCH; -Moxifloxacin HCL 0.5 MG/0.1 ML 0.4MLSYR RIGHTEYE SCH; +PHENYLEPHRINE\\TROPICAMIDE\\TETRACAINE OPHTHALMIC DILATING SOLN LEFTEYE PRN; -PHENYLEPHRINE\\TROPICAMIDE\\TETRACAINE OPHTHALMIC DILATING SOLN RIGHTEYE PRN; +Povidone-Iodine 450 DROP/30 ML Solution LEFTEYE SCH; -Povidone-Iodine 450 DROP/30 ML Solution RIGHTEYE SCH
--- NOTE | 2025-08-09 07:42 | NUR ---
08/09/25 0742 Isabela Conklin PT REPORTS ANXIETY LEVEL 5/10 PRIOR TO ADMINISTRATION OF VALIUM 10MG PO @ 0737. TETRACAINE IN AT 0738. PLEDGETT IN AT 0739. CALL LIGHT IN PT'S HAND. SPO2 99% ON RA. HR 52
--- NOTE | 2025-08-09 08:20 | NUR ---
08/09/25 0820 Aura Mahmood 0817 BP:122/63 HR:59 O2:98% RESP:16
[2025-08-09] MEDS ORDERED: Moxifloxacin HCL 0.5 MG/0.1 ML 0.4MLSYR LEFTEYE ONE (08:21)
[2025-08-09] MEDS ORDERED: Balanced Salt Epinephrine Irrigation Solution 500 mL LEFTEYE ONE (08:21)
[2025-08-09 08:35] VITALS: BP 117/76
== END 2025-08-09 08:44 | disposition home or self-care (01) ==
LOC: ORSCSDS 06:52
PROVIDERS: Student in an Organized Health Care Education/Training Program
PROC: 08RK3JZ Replacement of Left Lens with Synthetic Substitute, Percutaneous Approach (ICD-10-PCS; principal; 2025-08-09 08:30)
DX: H25.812 Combined forms of age-related cataract, left eye (principal); Z96.1 Presence of intraocular lens; Z87.891 Personal history of nicotine dependence; J44.9 Chronic obstructive pulmonary disease, unspecified; G47.33 Obstructive sleep apnea (adult) (pediatric); E78.5 Hyperlipidemia, unspecified; K21.9 Gastro-esophageal reflux disease without esophagitis; F32.A Depression, unspecified; F41.9 Anxiety disorder, unspecified; Z79.899 Other long term (current) drug therapy
CPT/HCPCS: A9270; J2003; V2632

== ENCOUNTER 2025-08-29 06:58 | Day surgery (SDC) | payer MEDICARE, OTHER ==
[~2025-08-29] VITALS: Ht 149.9 cm; Wt 65.0 kg
[2025-08-29] VITALS (15 sets, daily range): BP systolic 100–125; BP diastolic 49–63
[~2025-08-29 06:58] MED LIST changes: -Balanced Salt Epinephrine Irrigation Solution 500 mL IR SCH; -Moxifloxacin HCL 0.5 MG/0.1 ML 0.4MLSYR LEFTEYE SCH; -Ondansetron 4 MG SoluTab MM PRN; -PHENYLEPHRINE\\TROPICAMIDE\\TETRACAINE OPHTHALMIC DILATING SOLN LEFTEYE PRN; -Povidone-Iodine 450 DROP/30 ML Solution LEFTEYE SCH; -Povidone-Iodine 450 DROP/30 ML Solution ONE; -Tetracaine HCl/Pf 0.5% Opth Soln 4 ml ONE
--- NOTE | 2025-08-29 07:58 | NUR ---
Ambulatory in Day Surgery. History, Chart, Medications and Allergies reviewed before start of procedure. Patient confirms NPO status and agrees with scheduled surgery. Patient States Post-Procedure ride home has been arranged.
--- NOTE | 2025-08-29 09:00 | NUR ---
Patient up to Ambulate independently. Gait steady. TOLERATING PO LIQUIDS WITHOUT DIFFICULTY. Patient States Post-Procedure ride home has been arranged. Discharge instructions reviewed with patient. Patient verbalizes understanding. Copy given to patient to take home. IV REMOVED, CATHETER INTACT. Discharged via wheelchair to private car for ride home.
== END 2025-08-29 23:33 | disposition home or self-care (01) ==
LOC: ORSCMMR 06:58 → ORD 08:15 → ORSCMMR 23:33
PROVIDERS: Surgery
PROC: 0DB58ZX Excision of Esophagus, Via Natural or Artificial Opening Endoscopic, Diagnostic (ICD-10-PCS; principal; 2025-08-29 08:15)
PROC: 0DB48ZX Excision of Esophagogastric Junction, Via Natural or Artificial Opening Endoscopic, Diagnostic (ICD-10-PCS; principal; 2025-08-29 08:15)
DX: K22.70 Barrett's esophagus without dysplasia (principal); E78.5 Hyperlipidemia, unspecified; J44.9 Chronic obstructive pulmonary disease, unspecified; F41.9 Anxiety disorder, unspecified; F32.A Depression, unspecified; Z79.899 Other long term (current) drug therapy; Z87.891 Personal history of nicotine dependence
CPT/HCPCS: 88305; 88342; J2704; J7120